=== PATIENT | female | born 1960 | race Caucasian/White ===

== ENCOUNTER → 2021-06-24 | Day surgery (SDC) | payer OTHER ==
[~2021-06-24] VITALS: Ht 160 cm; Wt 113.4 kg
[~2021-06-24] MED LIST: BIOTIN5000 MCG PO; CINNAMON PO; COQ10 PO; CRANBERRY PO; ECHINACEA PO; GINKGO BILOBA60 MG PO; GLUCOSAMINE/CHONDRO PO; IRON PO; MAGNESIUM PO; OMEGA 3 PO; POTASSIUM; POTASSIUM PO; SUPER B COMPLEX PO; TUMERIC PO; VIT D3 PO; VIT E PO
== END | disposition home or self-care (01) ==
LOC: FAS 09:52
DX: D12.7 Benign neoplasm of rectosigmoid junction (principal); K64.4 Residual hemorrhoidal skin tags; G47.30 Sleep apnea, unspecified; Z79.899 Other long term (current) drug therapy; Z86.010 Personal history of colon polyps
CPT/HCPCS: J2250; J2704; J7120